=== PATIENT | male | born 1970 | race Caucasian/White ===

== ENCOUNTER 2016-12-03 07:31 | Day surgery (SDC) | payer OTHER ==
[2016-12-03 07:49] VITALS: BMI 31.0
[2016-12-03 07:56] VITALS: TEMP 97; O2SAT 100
[2016-12-03] MEDS ORDERED: Propofol 10 mg/ml Inj (20 ML) ONE (09:09)
[2016-12-03] MEDS ORDERED: Lidocaine Hydrochloride 5 ML INJ ONE (09:09)
[2016-12-03] MEDS ORDERED: Lactated Ringer's 500 ML IV ONE ×2 (09:14)
--- NOTE | 2016-12-03 09:14 | CP.SDSHP ---
Same Day Surgery H & P - History Proposed Procedure: COLONSCOPY Pre-Op Diagnosis: SEE NOTES - Previous Medical/Surgical History Endocrine/Metabolic: Other Misc: Other Pain: 4.Moderate Pain - Allergies Allergies: Allergies No Known Allergies Allergy (Verified 12/03/16 07:48) - Physical Exam General Appearance: N Vital Signs: Vital Signs 12/03/16 07:50 Temperature 97 F L Pulse Rate 68 Respiratory 19 Rate Blood Pressure 124/79 O2 Sat by Pulse 100 Oximetry Mental Status: Alert & Oriented x3 Neuro: WNL Heart: WNL Lungs: WNL GI: Other - {Optional Preform as Required} Breast: WNL Abdomen: Other Rectal: Other Integument: WNL : WNL Ortho: Other ENT: WNL - Impression Pt. Evaluated Today:Candidate for Anesthesia & Procedure: Yes - Date & Time Time: 09:14 Short Stay Discharge - Short Stay Discharge Admitting Diagnosis/Reason for Visit: OTHER SPECIFIED NONINFECTIVE GASTROENTERITIS AND C Disposition: HOME/ ROUTINE
[2016-12-03] MEDS ORDERED: Belladonna-Phenobarbital PO STA (09:15)
[2016-12-03] MEDS ORDERED: Lactated Ringer's 1,000 ML IV SCH (09:15)
[2016-12-03] MEDS ORDERED: Pantoprazole 40 mg EC Tab PO STA (09:15)
[2016-12-03] MEDS ORDERED: MethylPREDNISolone 40 mg Vial IVP STA (09:37)
[2016-12-03 10:22] VITALS: BP 113/71; PULSE 62; RESP 15
== END 2016-12-03 10:27 | disposition home or self-care (01) ==
LOC: C.ENDO 07:31
PROVIDERS: ATTEND Specialist
DX: K52.9 Noninfective gastroenteritis and colitis, unspecified (principal); K64.8 Other hemorrhoids; K58.9 Irritable bowel syndrome, unspecified
CPT/HCPCS: 45380; 88305; 88313; 88342; J2704; J2920; J7120

== ENCOUNTER 2016-12-10 06:51 | Day surgery (SDC) | payer OTHER ==
[2016-12-10] MEDS ORDERED: Lidocaine Hydrochloride 5 ML INJ ONE (08:43)
[2016-12-10] MEDS ORDERED: Propofol 10 mg/ml Inj (20 ML) ONE (08:43)
--- NOTE | 2016-12-10 08:50 | CP.SDSHP ---
Same Day Surgery H & P - History Proposed Procedure: EGD Pre-Op Diagnosis: SEE NOTES - Previous Medical/Surgical History Endocrine/Metabolic: Other Misc: Other Pain: 4.Moderate Pain - Allergies Allergies: Allergies No Known Allergies Allergy (Verified 12/03/16 07:48) - Physical Exam General Appearance: N Mental Status: Alert & Oriented x3 Neuro: WNL Heart: WNL Lungs: WNL GI: Other - {Optional Preform as Required} Breast: WNL Abdomen: Other Rectal: Other Integument: WNL : WNL Ortho: WNL ENT: WNL - Impression Pt. Evaluated Today:Candidate for Anesthesia & Procedure: Yes - Date & Time Time: 08:50 Short Stay Discharge - Short Stay Discharge Admitting Diagnosis/Reason for Visit: DYSPEPSIA Disposition: HOME/ ROUTINE
[2016-12-10] MEDS ORDERED: Belladonna-Phenobarbital PO STA (08:51)
[2016-12-10] MEDS ORDERED: Pantoprazole 40 mg EC Tab PO STA (08:51)
[2016-12-11 15:49] VITALS: TEMP 97.4
[2016-12-11 15:50] VITALS: PULSE 62
[2016-12-11 15:51] VITALS: BP 124/70; RESP 16; O2SAT 100
== END 2016-12-10 10:13 | disposition home or self-care (01) ==
LOC: C.ENDO 06:51
PROVIDERS: ATTEND Specialist
DX: K29.00 Acute gastritis without bleeding (principal); K44.9 Diaphragmatic hernia without obstruction or gangrene; K29.80 Duodenitis without bleeding; R10.13 Epigastric pain
CPT/HCPCS: 43239; 88305; J2704